=== PATIENT | male | born 1980 | race Caucasian/White ===

== ENCOUNTER 2016-05-18 08:00 | Outpatient (CLI) | payer OTHER | END 2016-05-18 08:01 | DX: R30.0 Dysuria (principal) ==

== ENCOUNTER 2017-04-20 14:31 | Emergency (ER) | payer OTHER ==
[2017-04-20 15:33] VITALS: BP 114/67
--- NOTE | 2017-04-20 15:35 | XRAY Report ---
EXAM: CHEST RADIOGRAPHY EXAM DATE: 04/20/2017 03:23 PM. CLINICAL HISTORY: Productive cough, fevers. COMPARISON: 03/02/2012 TECHNIQUE: 2 views. FINDINGS: Lungs/Pleura: No focal opacities evident. No pleural effusion. No pneumothorax. Normal volumes. Mediastinum: Heart and mediastinal contours are unremarkable. Other: No acute findings compared with 03/02/2012. IMPRESSION: Negative 2-view chest radiography. [facility] Referring Provider Line: [phone] SITE ID: [id number]
--- NOTE | 2017-04-20 16:18 | ED Physician Documentation ---
PD HPI URI - Stated complaint Stated Complaint: FLU LIKE SX - Chief complaint Chief Complaint: Resp - History obtained from History obtained from: Patient, Family - History of Present Illness Timing - onset: How many days ago (6) Timing duration: Days (6) Timing details: Gradual onset Pain level max: 4 Pain level now: 3 Associated symptoms: Fever (Subjective), Chills, Nasal congestion, Rhinorrhea, Dry cough. No: Hemoptysis, Dyspnea Contributing factors: Sick contact. No: Immunocompromised, Unimmunized, COPD / asthma Improves by: Rest Worsened by: Activity, Breathing - Additional information Additional information: Patient states he has had intermittent fevers, coughing, body aches for the past for 5 days. Today he felt lightheaded with standing. Now feeling well. Review of Systems Throat: denies: Sore throat GI: denies: Vomiting, Diarrhea Skin: denies: Rash Musculoskeletal: denies: Neck pain, Back pain Neurologic: denies: Headache, Head injury, LOC PD PAST MEDICAL HISTORY - Past Medical History Past Medical History: Yes Cardiovascular: None Respiratory: None Endocrine/Autoimmune: None GI: GERD, Hemorrhoids : None HEENT: None Psych: None Musculoskeletal: None Derm: None - Past Surgical History Past Surgical History: No HEENT: Other - Present Medications Home Medications: Ambulatory Orders Medication Instructions Recorded Confirmed Benzonatate [Tessalon Perle] 100 - 200 mg PO TID PRN #30 capsule 04/20/17 Ondansetron Odt [Zofran] 4 mg TL Q6H PRN #10 tablet 04/20/17 - Allergies Allergies/Adverse Reactions: Allergies Allergy/AdvReac Type Severity Reaction Status Date / Time cyclobenzaprine Allergy Severe Rash Verified 04/20/17 14:42 [Cyclobenzaprine] - Social History Does the pt smoke?: No Smoking Status: Never smoker Does the pt drink ETOH?: No Does the pt have substance abuse?: No - Immunizations Immunizations are current?: Yes - POLST Patient has POLST: No PD ED PE NORMAL - Vitals Vital signs reviewed: Yes - General General: Alert and oriented X 3, No acute distress, Well developed/nourished - HEENT HEENT: PERRL, Ears normal, Moist mucous membranes, Pharynx benign - Neck Neck: Supple, no meningeal sign - Cardiac Cardiac: RRR, No murmur, Strong equal pulses - Respiratory Respiratory: No respiratory distress, Clear bilaterally - Abdomen Abdomen: Soft, Non tender, Non distended - Derm Derm: Warm and dry, No rash - Extremities Extremities: No edema, No calf tenderness / cord - Neuro Neuro: Alert and oriented X 3 - Psych Psych: Normal mood, Normal affect Results - Vitals Vitals: Vital Signs - 24 hr 04/20/17 04/20/17 14:39 15:32 Temperature 37.1 C Heart Rate 79 86 Respiratory 18 16 Rate Blood Pressure 146/94 H 114/67 O2 Saturation 98 100 Oxygen O2 Source Room air - Rads (name of study) cxr Radiology: Prelim report reviewed, EMP read contemporaneously, See rad report ( normal) PD MEDICAL DECISION MAKING - ED course Complexity details: reviewed results, re-evaluated patient, considered differential, d/w patient ED course: Patient is a 36-year-old male who presents to the emergency department what appears to be a viral syndrome. He is very well-appearing, nontoxic. Tolerating p.o. without difficulty. No hypoxia or respiratory distress. No evidence of pneumonia. We will have him increase his hydration for home. He is not orthostatic. Patient counseled regarding signs and symptoms for which I believe and urgent re-evaluation would be necessary. Patient with good understanding of and agreement to plan and is comfortable going home at this time This document was made in part using voice recognition software. While efforts are made to proofread this document, sound alike and grammatical errors may occur. Departure - Departure Disposition: 01 Home, Self Care Clinical Impression: Upper respiratory tract infection Qualifiers: URI type: unspecified viral URI Qualified Code(s): J06.9 - Acute upper respiratory infection, unspecified Condition: Good Instructions: ED URI Viral Follow-Up: Gretchen Moreno MD [Primary Care Provider] - As Needed Prescriptions: Benzonatate [Tessalon Perle] 100 - 200 mg PO TID PRN #30 capsule PRN Reason: Cough Ondansetron Odt [Zofran] 4 mg TL Q6H PRN #10 tablet PRN Reason: Nausea / Vomiting Comments: You need to increase your fluid intake at home. Drink plenty of fluids and rest. Return if you worsen. Discharge Date/Time: 04/20/17 16:32
== END 2017-04-20 16:32 | disposition home or self-care (01) ==
LOC: ED 14:31
DX: J06.9 Acute upper respiratory infection, unspecified (principal); K21.9 Gastro-esophageal reflux disease without esophagitis
CPT/HCPCS: 71046; 99283